=== PATIENT | male | born 1960 | race Caucasian/White ===

== ENCOUNTER 2016-12-12 15:47 | Emergency (ER) | payer OTHER ==
--- NOTE | ~2016-12-12 | CT71 ---
[facility] A Service of [facility] RADIOLOGY TEXT RESULTS PATIENT: LACHELLE NOBLES LOCATION: SED : 56 UNIT #: [id number] AGE: [address]: Marcos Bay MD SEX: M ORDER DR: [id number] [place] [id number] E MR#: [id number] Acc #: [id number] NAME: LACHELLE NOBLES : 1960 SEX: M STUDY DATE/TIME: 12/12/2016 16:53 UNIT: SED ROOM: STUDY DESCRIPTION: CT Head Wo Contrast Attending Physician: Marcos Bay M.D. Ordering Physician: Marcos Bay M.D. Primary Care Physician: Nhan Mcmillan M.D. MEDICAL IMAGING REPORT This report is preliminary unless electronic signature is present. EXAM CT brain without contrast HISTORY Headache today. Fell and hit head 2 days ago. Dizzy. TECHNIQUE This CT exam was performed with one or more of the following radiation dose reduction techniques: automatic control, adjustment of mA and/or kV according to patient size, and iterative reconstruction. FINDINGS CT brain without contrast demonstrates no intracranial hemorrhage, mass or edema. No midline shift or ventricular dilatation or extraaxial fluid collection. Tiny chronic lacunar infarct in the right lentiform nucleus. Mild mucosal thickening in ethmoid air cells bilaterally. IMPRESSION 1. No acute findings. 2. Mild mucosal thickening in ethmoid air cells bilaterally. Dictated by... River Tidwell M.D. THIS IS AN ELECTRONICALLY VERIFIED REPORT River Tidwell M.D. at 12/13/2016 3:14 PM DFL/tio TD: 12/12/2016 19:06 JOB #: [id number] [facility] A Service [facility] RADIOLOGY TEXT RESULTS PATIENT: LACHELLE NOBLES LOCATION: SED : 56 UNIT #: [id number] AGE: [address]: Marcos Bay MD SEX: M ORDER DR: MEDICAL IMAGING REPORT Page 1 of 1
[~2016-12-12 15:47] MED LIST: AMBIEN PO; AMBIEN10 MG; AMOXICILLIN500 M1 PO; BACITRACIN15 GM OINT EXT; BACLOFEN PUMP; KLONOPIN; KLONOPIN0.5 MG PO; LIORESAL I10 MG/5 ML INJ; LORTAB 5/500 TA1 TA1 PO; LORTAB 5/500 TA1 TA2; LORTAB 7.5-3251 EACH PO; LORTAB 7.5-5001 TAB PO; ZITHROMAX1 G/PKT PO
[2016-12-12 16:27] LABS: BASOPHIL# 0.1 X10e3 (0-0.3); BASOPHIL% 0.8 % (0-2.5); EOSINOPHIL# 0.2 X10e3 (0-0.7); EOSINOPHIL% 3.9 % (0.0-7.0); HEMATOCRIT 42.4 % (38.0-50.0); HEMOGLOBIN 14.9 gm/dL (13.0-16.0); LYMPHOCYTE# 1.8 X10e3 (1.0-3.5); LYMPHOCYTE% 29.6 % (17.0-45.0); MEAN CELL VOLUME 90.4 FL (83-96); MEAN CORPUSCULAR HEMOGLOBIN 31.8 PG (28-34); MEAN CORPUSCULAR HGB CONC 35.2 g/dL (30-36); MEAN PLATELET VOLUME 7.6 FL (6.5-11.5); MONOCYTE# 0.3 X10e3 (0-1.0); MONOCYTE% 5.5 % (3.0-12.0); NEUTROPHIL# 3.7 X10e3 (1.5-7.1); NEUTROPHIL% 60.2 % (40-75); PLATELET COUNT 214 X10e3 (140-420); RED BLOOD COUNT 4.69 X10e (3.90-5.60); RED CELL DISTRIBUTION WIDTH 13.4 % (11.0-15.5); WHITE BLOOD COUNT 6.1 X10e3 (4.0-10.5)
[2016-12-12 16:32] LABS: DIFF IND NO
[2016-12-12 16:44] LABS: BUN/CREATININE RATIO 14.16; CREATININE SERUM 1.2 mg/dL (0.6-1.4); GLOM FILT RATE Estimated 66.3 mL/min (>60); POTASSIUM 3.4 mmol/L (3.5-5.1)
[2016-12-12 16:50] LABS: URINE SOURCE CLEAN CATCH
[2016-12-12 16:58] LABS: URINE APPEARANCE HAZY; URINE BILIRUBIN NEG (NEG); URINE BLOOD NEG (NEG); URINE COLOR YELLOW; URINE GLUCOSE NEG (NORM); URINE KETONE NEG (NEG); URINE LEUKOCYTE ESTERASE NEG (NEG); URINE NITRATE NEG (NEG); URINE PROTEIN NEG (NEG); URINE SPECIFIC GRAVITY 1.015 (1.003-1.035)
[2016-12-12 17:03] LABS: POC - CKMB 4.3 ng/mL (0.0-7.9); POC - TROPONIN <0.05 ng/mL (<=0.05)
[2016-12-12 17:04] LABS: MICRO INDICATED? NO
== END 2016-12-12 18:02 | disposition home or self-care (01) ==
LOC: SED 15:47
PROVIDERS: Emergency Medicine
DX: I10 Essential (primary) hypertension (principal); G12.29 Other motor neuron disease; Z79.899 Other long term (current) drug therapy
CPT/HCPCS: 36415; 70450; 80048; 81003; 82553; 84484; 85025; 99284

== ENCOUNTER 2017-01-27 01:07 | Emergency (ER) | payer OTHER ==
[~2017-01-27] VITALS: Ht 182.9 cm; Wt 111.1 kg
--- NOTE | ~2017-01-27 | EKG ---
PATIENT: LACHELLE NOBLES UNIT #: [id number] Ventricular Rate: 62 BPM Atrial Rate: 62 BPM P-R Interval: 164 ms QRS Duration: 82 ms Q-T Interval: 400 ms QTC Calculation(Bezet): 406 ms P [place]: 63 degrees Calculated R [place]: -4 degrees Calculated T [place]: 14 degrees Diagnosis Line: Normal sinus rhythm Diagnosis Line: Normal ECG Diagnosis Line: When compared with ECG of 16-SEP-2011 14:17, Diagnosis Line: No significant change was found Diagnosis Line: Confirmed by TIFFANIE BRASWELL MD ([id number]) on Diagnosis Line: 01/31/2017 11:17:09 AM INTERPRETING MD: FRENCH GU
--- NOTE | ~2017-01-27 | CR72 ---
[facility] A Service of [facility] RADIOLOGY TEXT RESULTS PATIENT: LACHELLE NOBLES LOCATION: SED : 56 UNIT #: [id number] AGE: [address]: Jorgito Haas DO SEX: M ORDER DR: [id number] [place] [id number] E MR#: [id number] Acc #: [id number] NAME: LACHELLE NOBLES : 1960 SEX: M STUDY DATE/TIME: 01/27/2017 1:38 UNIT: SED ROOM: STUDY DESCRIPTION: CR Chest Single View Portable Attending Physician: Jorgito Haas D.O.. Ordering Physician: Jorgito Haas D.O.. Primary Care Physician: Nhan Mcmillan M.D. MEDICAL IMAGING REPORT This report is preliminary unless electronic signature is present. EXAM Chest x-ray 01/27/2017 HISTORY 56-year-old male in the ED complaining of new onset headache, dizziness and shortness of air tonight. Elevated blood pressure. TECHNIQUE AP portable chest x-ray. FINDINGS Mild cardiomegaly. Pulmonary vascularity is normal. Lung volumes are low, but the lungs appear clear. No visible pulmonary infiltrate, pneumothorax or pleural effusion. No change since 04/18/2016. IMPRESSION No active disease. Stable mild cardiomegaly. Low lung volumes. No change since 04/18/2016. Dictated by... Marco Antonio Castorena M.D. THIS IS AN ELECTRONICALLY VERIFIED REPORT Marco Antonio Castorena M.D. at 01/28/2017 6:05 AM RENATA/tio TD: 01/28/2017 00:02 JOB #: [id number] MEDICAL IMAGING REPORT Page 1 of 1
--- NOTE | ~2017-01-27 | CT71 ---
[facility] A Service of [facility] RADIOLOGY TEXT RESULTS PATIENT: LACHELLE NOBLES LOCATION: SED : 56 UNIT #: [id number] AGE: [address]: Jorgito Haas DO SEX: M ORDER DR: [id number] [place] [id number] [id number] E MR#: [id number] Acc #: [id number] NAME: LACHELLE NOBLES : 1960 SEX: M STUDY DATE/TIME: 01/27/2017 1:52 UNIT: SED ROOM: STUDY DESCRIPTION: CT Head Wo Contrast Attending Physician: Jorgito Haas D.O.. Ordering Physician: Jorgito Haas D.O.. Primary Care Physician: Nhan Mcmillan M.D. MEDICAL IMAGING REPORT This report is preliminary unless electronic signature is present. EXAM CT head, noncontrast, 01/27/2017. HISTORY 56-year-old male in the ED complaining of new onset headache and dizziness tonight. Elevated blood pressure is noted. TECHNIQUE CT examination of the head without IV contrast. This CT exam was performed with one or more of the following radiation dose reduction techniques: automatic exposure control, adjustment of mA and/or kV according to patient size, and iterative reconstruction. COMPARISON CT head, 12/12/2016 FINDINGS No acute intracranial abnormality is demonstrated. Minimal generalized cerebral cortical atrophy. No evidence of intracranial hemorrhage, mass, mass effect, cerebral edema or hydrocephalus. Atheromatous calcification in the carotid siphons. Mucosal thickening is scattered throughout the ethmoid sinuses bilaterally. No significant change since 12/12/2016. IMPRESSION 1. No acute intracranial abnormality. 2. Bilateral ethmoid sinus disease. 3. No change since 12/12/2016. Dictated by... Marco Antonio Castorena M.D. THIS IS AN ELECTRONICALLY VERIFIED REPORT [facility] A Service of [facility] RADIOLOGY TEXT RESULTS PATIENT: LACHELLE NOBLES LOCATION: SED : 56 UNIT #: [id number] AGE: [address]: Jorgito Haas DO SEX: M ORDER DR: Marco Antonio Castorena M.D. at 01/28/2017 6:05 AM Homero TD: 01/28/2017 00:04 JOB #: [id number] MEDICAL IMAGING REPORT Page 1 of 1
[2017-01-27] MEDS ORDERED: LISINOPRIL10 MG PO (01:39)
[2017-01-27 01:44] LABS: BASOPHIL# 0.1 X10e3 (0-0.3); BASOPHIL% 0.8 % (0-2.5); EOSINOPHIL# 0.3 X10e3 (0-0.7); EOSINOPHIL% 3.1 % (0.0-7.0); HEMATOCRIT 38.8 % (38.0-50.0); HEMOGLOBIN 13.4 gm/dL (13.0-16.0); LYMPHOCYTE# 2.2 X10e3 (1.0-3.5); LYMPHOCYTE% 25.4 % (17.0-45.0); MEAN CELL VOLUME 84.4 FL (83-96); MEAN CORPUSCULAR HEMOGLOBIN 29.1 PG (28-34); MEAN CORPUSCULAR HGB CONC 34.5 g/dL (30-36); MEAN PLATELET VOLUME 8.6 FL (6.5-11.5); MONOCYTE# 0.6 X10e3 (0-1.0); MONOCYTE% 6.5 % (3.0-12.0); NEUTROPHIL# 5.5 X10e3 (1.5-7.1); NEUTROPHIL% 64.2 % (40-75); PLATELET COUNT 241 X10e3 (140-420); RED CELL DISTRIBUTION WIDTH 13.7 % (11.0-15.5); WHITE BLOOD COUNT 8.6 X10e3 (4.0-10.5)
[2017-01-27 01:45] LABS: DIFF IND NO
[2017-01-27 02:00] LABS: ALBUMIN SERUM 4.7 g/dL (3.5-5.0); BILIRUBIN, DIRECT 0.1 mg/dL (0.0-0.2); BILIRUBIN,INDIRECT 0.6 mg/dL (0.0-0.9); BILIRUBIN,TOTAL 0.7 mg/dL (0.2-2.0); CALCIUM SERUM 9.3 mg/dL (8.4-10.2); GLOM FILT RATE Estimated 82.6 mL/min (>60); POTASSIUM 3.4 mmol/L (3.5-5.1); PROTEIN TOTAL SERUM 7.6 g/dL (6.0-8.3)
== END 2017-01-27 03:04 | disposition short-term general hospital (02) ==
LOC: SED 01:07
PROVIDERS: Emergency Medicine
DX: I95.9 Hypotension, unspecified (principal); Z79.899 Other long term (current) drug therapy
CPT/HCPCS: 36415; 70450; 71010; 80048; 80076; 85025; 93005; 99285